=== PATIENT | female | born 1950 | race Asian ===

== ENCOUNTER → 2017-08-03 | Outpatient (CLI) | payer MEDICARE, OTHER ==
[~2017-08-03] VITALS: Ht 157.5 cm; Wt 62.0 kg
[~2017-08-03] MED LIST: ALBU8.5H8 IH; ASPI81TA87 PO; CETI-290 PO; CITA-106 PO; DSS100 PO; ESOM20CA31 PO; FERR-89 PO; FOLI0.4T4 PO; FURO20 PO; GABA-529 PO; IBUP-2071 PO; INSLAN SQ; INSU100I3 SQ; KDUR10 PO; LIDO700A15; LOPE2 PO; OS500 PO; PRENATAL PO; SIME80 PO; SIMV-261 PO; SYMB8060 IH; TEMA15CA PO
[2017-08-03 14:32] VITALS: BP 140/63
== END | disposition home or self-care (01) ==
LOC: SRCNTR 13:44
PROVIDERS: ATTEND Internal Medicine
DX: G47.33 Obstructive sleep apnea (adult) (pediatric) (principal); M32.9 Systemic lupus erythematosus, unspecified; I10 Essential (primary) hypertension; Z86.11 Personal history of tuberculosis; Z98.890 Other specified postprocedural states
CPT/HCPCS: G0463

== ENCOUNTER → 2018-03-05 | Outpatient (CLI) | payer MEDICARE, OTHER ==
[~2018-03-05] VITALS: Ht 147.3 cm; Wt 63.0 kg
[~2018-03-05] MED LIST changes: +ASPI-891 PO; +MORP30 PO; +OXYC10 PO
[2018-03-05 10:30] VITALS: BP 149/76
== END | disposition home or self-care (01) ==
LOC: SRCNTR 10:27
PROVIDERS: ATTEND Internal Medicine
DX: J44.9 Chronic obstructive pulmonary disease, unspecified (principal); G47.33 Obstructive sleep apnea (adult) (pediatric); I10 Essential (primary) hypertension
CPT/HCPCS: G0463

== ENCOUNTER → 2018-06-18 | Outpatient (CLI) | payer MEDICARE, OTHER ==
[~2018-06-18] VITALS: Ht 147.3 cm; Wt 65.0 kg
[~2018-06-18] MED LIST changes: -ALBU8.5H8 IH; +ASPI-1182 PO; -ASPI81TA87 PO; -CETI-290 PO; -CITA-106 PO; -DSS100 PO; -FERR-89 PO; -FOLI0.4T4 PO; -FURO20 PO; -GABA-529 PO; -INSLAN SQ; -INSU100I3 SQ; -KDUR10 PO; -LIDO700A15; -LOPE2 PO; -OS500 PO; -PRENATAL PO; -SIME80 PO; -SIMV-261 PO; -SYMB8060 IH; -TEMA15CA PO
[2018-06-18 09:10] VITALS: BP 137/74
== END | disposition home or self-care (01) ==
LOC: SRCNTR 09:00
PROVIDERS: ATTEND Internal Medicine
DX: J44.9 Chronic obstructive pulmonary disease, unspecified (principal); I10 Essential (primary) hypertension; G47.33 Obstructive sleep apnea (adult) (pediatric)
CPT/HCPCS: G0463

== ENCOUNTER → 2019-02-13 | Outpatient (CLI) | payer MEDICARE, OTHER ==
[~2019-02-13] MED LIST changes: -ASPI-891 PO; +EXEN2PEN SQ; -MORP30 PO; -OXYC10 PO; +OXYC10TA59 PO
[2019-02-13 11:05] VITALS: BP 161/82
== END | disposition home or self-care (01) ==
LOC: SRCNTR 11:04
PROVIDERS: ATTEND Internal Medicine
DX: J44.9 Chronic obstructive pulmonary disease, unspecified (principal); Z87.891 Personal history of nicotine dependence; Z79.82 Long term (current) use of aspirin
CPT/HCPCS: G0463